=== PATIENT | female | born 2000 | race Caucasian/White ===

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

== ENCOUNTER 2024-01-16 19:51 | Emergency (ER) | payer BC ==
[~2024-01-16] VITALS: Ht 160 cm; Wt 127.0 kg
[2024-01-16] MEDS ORDERED: ACETAMINOPHEN 325 MG TAB PO ONE (20:35)
[2024-01-16] MEDS ORDERED: IBUPROFEN 600 MG TAB PO ONE (20:35)
[2024-01-16 20:37] LABS: BASO # 0.1 10*3/uL (0.0-0.1); BASO % 0.4 % (0.0-1.0); EOS % 0.2 % (1.0-4.0); HEMATOCRIT 41.4 % (37.0-47.0); LYMPH # 2.1 10*3/uL (1.3-4.4); LYMPH % 13.4 % (27.0-41.0); MEAN CELL VOLUME 86.1 fl (81.0-99.0); MEAN CORPUSCULAR HGB 27.9 pg (27.0-31.0); MEAN CORPUSCULAR HGB CONC 32.4 g/dl (33.0-37.0); MEAN PLATELET VOLUME 9.2 fl (9.6-12.3); MONO # 0.9 10*3/uL (0.1-1.0); MONO % 5.9 % (3.0-9.0); NEUT # 12.3 10*3/uL (2.3-7.9); NEUT % 79.7 % (47.0-73.0); PLATELET COUNT AUTOMATED 353 10*3/uL (130-400); RED BLOOD COUNT 4.81 10*6/uL (4.10-5.10); RED CELL DISTRI WIDTH 12.7 % (0-14.5); WHITE BLOOD COUNT 15.4 10*3/uL (4.8-10.8)
[2024-01-16 20:51] LABS: CHLORIDE 105 mmol/L (98-107); POTASSIUM 3.7 mmol/L (3.4-5.1)
[2024-01-16 20:53] LABS: BUN < 5 mg/dl (9-23)
[2024-01-16] MEDS ORDERED: ZITHROMAX250 MG PO (21:13)
[2024-01-16] MEDS ORDERED: PREDNISONE50 MG PO (21:13)
[2024-01-16] MEDS ORDERED: AZITHROMYCIN 250 MG TAB PO ONE (21:15)
[2024-01-16] MEDS ORDERED: predniSONE 20 MG TAB PO ONE (21:15)
== END 2024-01-16 21:37 | disposition home or self-care (01) ==
LOC: ED 19:51
PROVIDERS: Nurse Practitioner Family
DX: J98.4 Other disorders of lung (principal); Z20.822 Contact with and (suspected) exposure to COVID-19; K21.9 Gastro-esophageal reflux disease without esophagitis; J45.909 Unspecified asthma, uncomplicated; R11.0 Nausea; Z90.49 Acquired absence of other specified parts of digestive tract; Z98.890 Other specified postprocedural states

== ENCOUNTER 2024-07-19 14:48 | Emergency (ER) | payer BC ==
[~2024-07-19] VITALS: Ht 157.4 cm; Wt 131.5 kg
[~2024-07-19 14:48] MED LIST changes: +PREDNISONE50 MG PO; +ZITHROMAX250 MG PO
== END 2024-07-19 15:08 | disposition home or self-care (01) ==
LOC: ED 14:48
DX: S00.511A Abrasion of lip, initial encounter (principal); W31.89XA Contact with other specified machinery, initial encounter; Y93.H2 Activity, gardening and landscaping; Y92.89 Other specified places as the place of occurrence of the external cause; Y99.8 Other external cause status